=== PATIENT | male | born 1965 | race Caucasian/White ===

== ENCOUNTER 2020-01-01 21:01 | Inpatient (IN) ==
[2020-01-01 21:21] LABS: Basophils # 0.1 K/mcL (0.0-0.2); Basophils % 0.6 %; Eosinophils # 0.3 K/mcL (0.0-0.6); Eosinophils % 2.7 %; Hematocrit 45.4 % (37.5-50.1); Hemoglobin 14.9 g/dL (12.9-16.9); Immature Granulocytes % 0.5 % (0-4); Lymphocytes # 2.9 K/mcL (0.6-4.6); Lymphocytes % 30.2 %; Mean Corpuscular HGB Conc 32.8 g/dL (31.6-35.5); Mean Corpuscular Hemoglobin 28.9 pg (28.0-33.3); Mean Corpuscular Volume 88.2 fL (83.0-100.0); Mean Platelet Volume 10.2 fL (9.4-12.4); Monocytes # 0.9 K/mcL (0.0-1.3); Monocytes % 8.8 %; Neutrophils # 5.5 K/mcL (1.6-8.9); Platelet Count 337 K/mcL (140-400); Red Blood Count 5.15 M/mcL (4.19-5.50); Red Cell Distribution Width 12.5 % (11.5-14.5); Segmented Neutrophils % 57.2 %; White Blood Count 9.7 K/mcL (4.3-11.1)
[2020-01-01] MEDS: Nitroglycerin 0.4 MG TAB.SUBL SL SCH (21:25)
[2020-01-01 21:29] LABS: INR 0.9; Prothrombin Time 10.6 Seconds (9.4-12.1)
[2020-01-01] MEDS ORDERED: *HR* FentaNYL (PF) 100 MCG/2 ML VIAL IVP ONE (21:30)
[2020-01-01] MEDS ORDERED: Ondansetron 4 MG/2 ML VIAL IVP ONE (21:31)
[2020-01-01 21:32] LABS: Activated Partial Thrombo Time 30.6 Seconds (26.0-36.0)
[2020-01-01 21:41] LABS: Albumin 3.9 g/dL (3.5-5.7); Bilirubin,Direct 0.1 mg/dL (0.0-0.2); Bilirubin,Indirect 0.2 mg/dL (0.0-1.0); Bilirubin,Total 0.3 mg/dL (0.3-1.0); Globulin 3.8 g/dL (2.4-3.5); Total Protein 7.7 g/dL (6.4-8.9)
[2020-01-01 21:47] LABS: BUN/Creatinine Ratio 11 (6-26); Blood Urea Nitrogen 17 mg/dL (6-20); Calcium 9.3 mg/dL (8.6-10.3); Carbon Dioxide 22 mEq/L (23-29); Chloride 98 mEq/L (98-107); Glucose 262 mg/dL (70-105); Osmolality,Calculated 285 (280-300); Potassium 3.9 mEq/L (3.5-5.1); Sodium 132 mEq/L (136-145); Troponin I < 0.03 ng/mL (< 0.04); eGFR For African Americans 59 (> 60); eGFR For Non-African Americans 49 (> 60)
[2020-01-01] MEDS ORDERED: *HR* HYDROmorphone (PF) 1 MG/ML SYRINGE IVP ONE (22:18)
[2020-01-01] MEDS ORDERED: *HR* Labetalol 20 MG/4 ML SYRINGE IVP ONE (23:12)
[2020-01-02] MEDS: Nitroglycerin 0.4 MG TAB.SUBL SL SCH (00:33)
[2020-01-02] MEDS ORDERED: Naloxone 0.4 MG/ML INJ IVP PRN ×3 (01:19→18:17)
[2020-01-02] MEDS: Morphine Sulfate 2 MG/ML SYRINGE IVP PRN ×7 (01:25→22:20)
[2020-01-02] MEDS ORDERED: 0.9 % Sodium Chloride 1,000 ML IVC ONE (02:08)
[2020-01-02 03:04] LABS: Hematocrit 45.4 % (37.5-50.1); Hemoglobin 14.9 g/dL (12.9-16.9); Mean Corpuscular HGB Conc 32.8 g/dL (31.6-35.5); Mean Corpuscular Hemoglobin 28.9 pg (28.0-33.3); Mean Platelet Volume 10.3 fL (9.4-12.4); Platelet Count 291 K/mcL (140-400); Red Blood Count 5.16 M/mcL (4.19-5.50); Red Cell Distribution Width 12.5 % (11.5-14.5); White Blood Count 9.9 K/mcL (4.3-11.1)
[2020-01-02 03:25] LABS: BUN/Creatinine Ratio 13 (6-26); Blood Urea Nitrogen 16 mg/dL (6-20); Carbon Dioxide 23 mEq/L (23-29); Chloride 98 mEq/L (98-107); Glucose 330 mg/dL (70-105); Magnesium 1.7 mg/dL (1.6-2.6); Osmolality,Calculated 288 (280-300); Phosphorous 2.3 mg/dL (2.7-4.5); Potassium 4.2 mEq/L (3.5-5.1); Sodium 132 mEq/L (136-145); Troponin I < 0.03 ng/mL (< 0.04); eGFR For African Americans > 60 (> 60); eGFR For Non-African Americans 59 (> 60)
[2020-01-02] MEDS ORDERED: Ondansetron 4 MG/2 ML VIAL IVP PRN ×2 (05:29→18:17)
[2020-01-02] MEDS ORDERED: D5% in Water 1,000 ML IVC PRN ×2 (09:00→18:17)
[2020-01-02] MEDS ORDERED: 0.9 % Sodium Chloride 1,000 ML IVC SCH (09:00)
[2020-01-02] MEDS ORDERED: Dextrose Gel 15 GM/37.5 ML TUBE PO PRN ×4 (09:00→18:17)
[2020-01-02] MEDS ORDERED: *HR* Dextrose 50 % in Water (Vial) 50 ML VIAL IVP PRN ×2 (09:00→18:17)
[2020-01-02] MEDS ORDERED: amLODIPine 5 MG TABLET PO SCH (09:15)
[2020-01-02] MEDS ORDERED: Insulin DETEMIR 100 UNIT/ML X5UNITS SQ SCH (09:15)
[2020-01-02 11:05] LABS: Estimated Average Glucose 278 mg/dl
[2020-01-02] MEDS: Piperacillin/Tazobactam 3.375 GM in 0.9 % Sodium Chloride Mini Bag 100 ML IVPB SCH ×3 (11:06→18:51)
[2020-01-02] MEDS: carvediloL 25 MG TABLET PO SCH ×2 (11:07→18:37)
[2020-01-02] MEDS: Insulin LISPRO 300 UNITS/3 ML VIAL SQ SCH ×4 (11:12→23:04)
[2020-01-02 14:01] LABS: Adenovirus Not Detected (Not Detect); Bordetella Pertussis Not Detected (Not Detect); Chlamydophila pneumoniae Not Detected (Not Detect); Coronavirus 229E Not Detected (Not Detect); Coronavirus HKU1 Not Detected (Not Detect); Coronavirus NL63 Not Detected (Not Detect); Coronavirus OC43 Not Detected (Not Detect); Human Metapneumovirus Not Detected (Not Detect); Human Rhinovirus/Enterovirus Not Detected (Not Detect); Influenza A Subtype 2009 H1 Not Detected (Not Detect); Influenza B Not Detected (Not Detect); Mycoplasma pneumoniae Not Detected (Not Detect); Parainfluenza Virus 1 Not Detected (Not Detect); Parainfluenza Virus 2 Not Detected (Not Detect); Parainfluenza Virus 3 Not Detected (Not Detect); Parainfluenza Virus 4 Not Detected (Not Detect); Respiratory Syncytial Virus Not Detected (Not Detect); SARS-CoV-2 Not Detected (Not Detect)
[2020-01-02] MEDS ORDERED: *HR* Rocuronium Bromide 50 MG/5 ML VIAL ONE (15:40)
[2020-01-02] MEDS ORDERED: Lidocaine -MPF 2% 2 ML VIAL ONE (15:40)
[2020-01-02] MEDS ORDERED: Lidocaine HCL 4 ML Topical Solution (Laryng-O-Jet Kit Sterile Pak) TP ONE (15:40)
[2020-01-02] MEDS ORDERED: *HR* Midazolam HCl 2 MG/2 ML VIAL ONE (15:40)
[2020-01-02] MEDS ORDERED: *HR* FentaNYL (PF) 100 MCG/2 ML VIAL ONE ×2 (15:40→16:36)
[2020-01-02] MEDS ORDERED: *HR* Propofol 200 MG/20 ML VIAL IVP ONE (15:40)
[2020-01-02] MEDS ORDERED: *HR* Succinylcholine 200 MG/10 ML VIAL IVP ONE (15:40)
[2020-01-02] MEDS ORDERED: Isovue-300 50ML VIAL ONE (15:44)
[2020-01-02] MEDS ORDERED: *HR* Labetalol 20 MG/4 ML SYRINGE IVP PRN ×2 (16:02→18:17)
[2020-01-02] MEDS ORDERED: Albuterol 2.5 MG/3 ML NEBULIZER IH PRN (16:02)
[2020-01-02] MEDS ORDERED: *HR* FentaNYL (PF) 100 MCG/2 ML VIAL IVP PRN (16:02)
[2020-01-02] MEDS ORDERED: flumazeniL 0.5 MG/5 ML VIAL IVP PRN (16:02)
[2020-01-02] MEDS ORDERED: *HR* HYDROmorphone PF 0.5 MG/0.5 ML SYRINGE IVP PRN (16:02)
[2020-01-02] MEDS ORDERED: Ondansetron 4 MG/2 ML VIAL ONE (16:17)
[2020-01-02] MEDS ORDERED: *HR* PHENYLEPHRINE 1,000 MCG/10 ML SYRINGE IVP ONE (16:18)
[2020-01-02] MEDS ORDERED: Scopolamine Patch 1.5 MG PATCH.TD72 ONE (16:22)
[2020-01-02] MEDS ORDERED: Neostigmine Methylsulfate 3 MG/3 ML SYRINGE ONE (16:33)
[2020-01-03] MEDS: Piperacillin/Tazobactam 3.375 GM in 0.9 % Sodium Chloride Mini Bag 100 ML IVPB SCH ×3 (02:04→19:45)
[2020-01-03 04:11] LABS: Basophils % 0.2 %; Eosinophils # 0.1 K/mcL (0.0-0.6); Eosinophils % 0.8 %; Hematocrit 41.6 % (37.5-50.1); Immature Granulocytes % 0.3 % (0-4); Lymphocytes # 1.9 K/mcL (0.6-4.6); Lymphocytes % 20.7 %; Mean Corpuscular HGB Conc 31.7 g/dL (31.6-35.5); Mean Corpuscular Hemoglobin 28.4 pg (28.0-33.3); Mean Corpuscular Volume 89.7 fL (83.0-100.0); Mean Platelet Volume 10.2 fL (9.4-12.4); Monocytes # 0.8 K/mcL (0.0-1.3); Monocytes % 8.1 %; Neutrophils # 6.5 K/mcL (1.6-8.9); Platelet Count 235 K/mcL (140-400); Red Blood Count 4.64 M/mcL (4.19-5.50); Red Cell Distribution Width 12.9 % (11.5-14.5); Segmented Neutrophils % 69.9 %; White Blood Count 9.3 K/mcL (4.3-11.1)
[2020-01-03 04:14] LABS: Hemoglobin 13.2 g/dL (12.9-16.9)
[2020-01-03 04:20] LABS: Calcium 8.4 mg/dL (8.6-10.3); Magnesium 1.7 mg/dL (1.6-2.6); Phosphorous 3.2 mg/dL (2.7-4.5); Potassium 3.9 mEq/L (3.5-5.1)
[2020-01-03] MEDS: Insulin LISPRO 300 UNITS/3 ML VIAL SQ SCH ×4 (05:05→19:49)
[2020-01-03] MEDS: Morphine Sulfate 2 MG/ML SYRINGE IVP PRN ×3 (05:43→15:11)
[2020-01-03] MEDS ORDERED: 0.9 % Sodium Chloride 1,000 ML IVC SCH (09:00)
[2020-01-03] MEDS ORDERED: amLODIPine 5 MG TABLET PO SCH ×2 (09:00)
[2020-01-03] MEDS ORDERED: Insulin DETEMIR 100 UNIT/ML X5UNITS SQ SCH ×2 (09:00)
[2020-01-03] MEDS: Aspirin Enteric Coated 81 MG Tablet PO SCH (10:25)
[2020-01-03] MEDS: Isosorbide MONOnitrate (24 HR) 60 MG TAB.ER.24H PO SCH (10:25)
[2020-01-03] MEDS: Ferrous Sulfate Oral Soln 300 MG/5 ML UDC PO SCH (10:25)
[2020-01-03] MEDS: Psyllium 1 PACKET POWD.PACK PO SCH (10:26)
[2020-01-03] MEDS: carvediloL 25 MG TABLET PO SCH ×2 (10:30→17:24)
[2020-01-03] MEDS: 0.9 % Sodium Chloride 1,000 ML IVC SCH (12:00)
[2020-01-03] MEDS: *HR* Heparin 5,000 UNIT/ML VIAL SQ SCH (17:24)
[2020-01-03] MEDS: *HR* OxyCODONE/APAP 5/325 TABLET PO PRN (19:44)
[2020-01-04] MEDS: Piperacillin/Tazobactam 3.375 GM in 0.9 % Sodium Chloride Mini Bag 100 ML IVPB SCH ×3 (04:39→17:57)
[2020-01-04] MEDS: 0.9 % Sodium Chloride 1,000 ML IVC SCH (04:39)
[2020-01-04 05:20] LABS: Calcium 8.3 mg/dL (8.6-10.3); Magnesium 1.7 mg/dL (1.6-2.6); Phosphorous 2.9 mg/dL (2.7-4.5); Potassium 3.8 mEq/L (3.5-5.1)
[2020-01-04] MEDS: *HR* Heparin 5,000 UNIT/ML VIAL SQ SCH ×2 (05:21→16:45)
[2020-01-04] MEDS: amLODIPine 5 MG TABLET PO SCH (08:26)
[2020-01-04] MEDS: Aspirin Enteric Coated 81 MG Tablet PO SCH (08:26)
[2020-01-04] MEDS: Isosorbide MONOnitrate (24 HR) 60 MG TAB.ER.24H PO SCH (08:26)
[2020-01-04] MEDS: carvediloL 25 MG TABLET PO SCH ×2 (08:27→16:45)
[2020-01-04] MEDS: Ferrous Sulfate Oral Soln 300 MG/5 ML UDC PO SCH (08:28)
[2020-01-04] MEDS: Insulin DETEMIR 100 UNIT/ML X5UNITS SQ SCH (08:29)
[2020-01-04] MEDS: Insulin LISPRO 300 UNITS/3 ML VIAL SQ SCH ×4 (08:29→20:17)
[2020-01-04] MEDS: Psyllium 1 PACKET POWD.PACK PO SCH (08:33)
[2020-01-04 10:31] LABS: Sodium, Urine 97.3 mEq/L
[2020-01-04 10:38] LABS: Bilirubin,Urine Negative (Negative); Blood,Urine Trace (Negative); Clarity,Urine Clear (Clear); Color,Urine Light-Yellow (Yellow); Glucose,Urine (UA) 500 mg/dL (Normal); Ketones,Urine Negative (Negative); Leukocyte Esterase,Urine Negative (Negative); Mucus,Urine Few per lpf (None-Few); Nitrite,Urine Negative (Negative); PH,Urine 6.5 pH Units (5.0-8.0); Protein,Urine >=300 mg/dL (Neg-Trace); RBC,Urine 0-3 per hpf (0-3); Specific Gravity,Urine 1.018 (1.010-1.025); Urobilinogen,Urine Normal (Normal); WBC,Urine 0-3 per hpf (0-3)
[2020-01-04] MEDS: Sennosides/Docusate Sodium TABLET PO SCH ×2 (12:51→20:21)
[2020-01-04] MEDS ORDERED: Perflutren Lipid Microsphere 1.3 ML in 0.9 % Sodium Chloride 8.7 ML IVP PRN (13:56)
[2020-01-04] MEDS: *HR* OxyCODONE/APAP 5/325 TABLET PO PRN ×2 (14:33→22:35)
[2020-01-05] MEDS: Piperacillin/Tazobactam 3.375 GM in 0.9 % Sodium Chloride Mini Bag 100 ML IVPB SCH (03:21)
[2020-01-05 06:12] LABS: Calcium 8.6 mg/dL (8.6-10.3); Magnesium 1.7 mg/dL (1.6-2.6); Potassium 3.4 mEq/L (3.5-5.1)
[2020-01-05] MEDS: *HR* Heparin 5,000 UNIT/ML VIAL SQ SCH (06:20)
[2020-01-05] MEDS: Sennosides/Docusate Sodium TABLET PO SCH (07:53)
[2020-01-05] MEDS: Aspirin Enteric Coated 81 MG Tablet PO SCH (07:54)
[2020-01-05] MEDS: carvediloL 25 MG TABLET PO SCH (07:54)
[2020-01-05] MEDS: Isosorbide MONOnitrate (24 HR) 60 MG TAB.ER.24H PO SCH (07:55)
[2020-01-05] MEDS: Psyllium 1 PACKET POWD.PACK PO SCH (07:55)
[2020-01-05] MEDS: amLODIPine 5 MG TABLET PO SCH (07:55)
[2020-01-05] MEDS: Ferrous Sulfate Oral Soln 300 MG/5 ML UDC PO SCH (07:55)
[2020-01-05] MEDS: Insulin LISPRO 300 UNITS/3 ML VIAL SQ SCH (07:56)
[2020-01-05] MEDS: Insulin DETEMIR 100 UNIT/ML X5UNITS SQ SCH (07:56)
[2020-01-05 10:26] VITALS: BP 139/71
== END 2020-01-05 11:09 | disposition home or self-care (01) | DRG 418 ==
LOC: EMEROOARM 21:01 → 3BNU 21:01 → SUATTDRO 01-02 00:03 → 3BNU 01-02 00:26
PROVIDERS: ADMIT Family Medicine; ATTEND Internal Medicine

== ENCOUNTER 2020-08-19 11:20 | Inpatient (IN) ==
[2020-08-19 11:58] LABS: Basophils % 0.4 %; Eosinophils # 0.2 K/mcL (0.0-0.6); Eosinophils % 2.3 %; Hematocrit 39.7 % (37.5-50.1); Immature Granulocytes % 0.3 % (0-4); Lymphocytes # 2.2 K/mcL (0.6-4.6); Lymphocytes % 23.9 %; Mean Corpuscular HGB Conc 32.7 g/dL (31.6-35.5); Mean Corpuscular Hemoglobin 28.8 pg (28.0-33.3); Mean Corpuscular Volume 87.8 fL (83.0-100.0); Mean Platelet Volume 10.5 fL (9.4-12.4); Monocytes # 0.6 K/mcL (0.0-1.3); Monocytes % 6.4 %; Neutrophils # 6.2 K/mcL (1.6-8.9); Platelet Count 290 K/mcL (140-400); Red Blood Count 4.52 M/mcL (4.19-5.50); Red Cell Distribution Width 13.2 % (11.5-14.5); Segmented Neutrophils % 66.7 %; White Blood Count 9.2 K/mcL (4.3-11.1)
[2020-08-19] MEDS: Nitroglycerin 0.4 MG TAB.SUBL SL PRN ×2 (12:11→12:37)
[2020-08-19 12:20] LABS: BUN/Creatinine Ratio 10 (6-26); Blood Urea Nitrogen 15 mg/dL (6-20); Carbon Dioxide 22 mEq/L (23-29); Chloride 100 mEq/L (98-107); Glucose 376 mg/dL (70-105); Osmolality,Calculated 290 (280-300); Potassium 3.8 mEq/L (3.5-5.1); Sodium 132 mEq/L (136-145); Troponin I 0.86 ng/mL (< 0.04); eGFR For African Americans > 60 (> 60); eGFR For Non-African Americans 50 (> 60)
[2020-08-19] MEDS ORDERED: *HR* Heparin 5,000 UNIT/ML VIAL IVP PRN ×2 (12:27)
[2020-08-19] MEDS ORDERED: *HR* Heparin 5,000 UNIT/ML VIAL IVP ONE (12:27)
[2020-08-19] MEDS ORDERED: Heparin 25,000UNIT/250ML 1/2NS 25,000 UNIT/250 ML IV.SOLN IVC SCH (12:30)
[2020-08-19] MEDS ORDERED: Aspirin 81 MG TAB.CHEW PO STA (13:11)
[2020-08-19] MEDS ORDERED: Nitroglycerin 0.4 MG TAB.SUBL SL PRN (14:17)
[2020-08-19] MEDS ORDERED: Perflutren Lipid Microsphere 1.3 ML in 0.9 % Sodium Chloride 8.7 ML IVP PRN (14:21)
[2020-08-19] MEDS ORDERED: Naloxone 0.4 MG/ML INJ IVP PRN (14:22)
[2020-08-19] MEDS ORDERED: Acetaminophen 325 MG TABLET PO PRN (14:22)
[2020-08-19] MEDS ORDERED: Ondansetron 4 MG/2 ML VIAL IVP PRN (14:22)
[2020-08-19] MEDS: carvediloL 25 MG TABLET PO SCH (17:31)
[2020-08-19] MEDS: 0.9 % Sodium Chloride 1,000 ML IVC SCH (17:49)
[2020-08-19] MEDS ORDERED: D5% in Water 1,000 ML IVC PRN (18:21)
[2020-08-19] MEDS ORDERED: Dextrose Gel 15 GM/37.5 ML TUBE PO PRN ×2 (18:21)
[2020-08-19] MEDS ORDERED: *HR* Dextrose 50 % in Water (Vial) 50 ML VIAL IVP PRN (18:21)
[2020-08-19] MEDS: Insulin LISPRO 300 UNITS/3 ML VIAL SUBQ SCH ×2 (19:49→21:14)
[2020-08-19] MEDS ORDERED: Ipratropium/Albuterol Neb 3 ML IH PRN (20:23)
[2020-08-19] MEDS: *HR* Acetylcysteine 20% 600 MG/3 ML ORAL SYRINGE PO SCH (21:03)
[2020-08-20 00:58] LABS: Basophils % 0.4 %; Eosinophils # 0.3 K/mcL (0.0-0.6); Eosinophils % 3.4 %; Hematocrit 34.6 % (37.5-50.1); Hemoglobin 11.7 g/dL (12.9-16.9); Immature Granulocytes % 0.3 % (0-4); Lymphocytes # 2.6 K/mcL (0.6-4.6); Lymphocytes % 35.4 %; Mean Corpuscular HGB Conc 33.8 g/dL (31.6-35.5); Mean Corpuscular Hemoglobin 29.5 pg (28.0-33.3); Mean Corpuscular Volume 87.4 fL (83.0-100.0); Mean Platelet Volume 10.9 fL (9.4-12.4); Monocytes # 0.5 K/mcL (0.0-1.3); Monocytes % 6.6 %; Platelet Count 238 K/mcL (140-400); Red Blood Count 3.96 M/mcL (4.19-5.50); Red Cell Distribution Width 13.3 % (11.5-14.5); Segmented Neutrophils % 53.9 %; White Blood Count 7.5 K/mcL (4.3-11.1)
[2020-08-20 01:13] LABS: Estimated Average Glucose 249 mg/dl; Hemoglobin A1C 10.3 %
[2020-08-20 01:15] LABS: Calcium 8.6 mg/dL (8.6-10.3); Magnesium 1.7 mg/dL (1.6-2.6); Potassium 3.4 mEq/L (3.5-5.1)
[2020-08-20] MEDS: Aspirin Enteric Coated 81 MG Tablet PO SCH (08:07)
[2020-08-20] MEDS: *HR* Acetylcysteine 20% 600 MG/3 ML ORAL SYRINGE PO SCH (08:07)
[2020-08-20] MEDS: carvediloL 25 MG TABLET PO SCH ×2 (08:07→16:17)
[2020-08-20] MEDS: Insulin LISPRO 300 UNITS/3 ML VIAL SUBQ SCH ×4 (08:08→21:44)
[2020-08-20] MEDS ORDERED: Potassium Chloride Elixir 20 MEQ/15 ML UDC PO ONE (09:08)
[2020-08-20] MEDS: amLODIPine 5 MG TABLET PO SCH (09:51)
[2020-08-20] MEDS ORDERED: *HR* Heparin 10,000 UNIT/10 ML VIAL ONE (10:40)
[2020-08-20] MEDS ORDERED: ISOVUE-370 200 ML INFUS..BTL ONE (10:40)
[2020-08-20] MEDS ORDERED: Heparin 1,000 UNITS/500 mL 500 ML ONE (10:40)
[2020-08-20] MEDS ORDERED: 0.9 % Sodium Chloride 2,000 ML ONE (10:40)
[2020-08-20] MEDS ORDERED: Nitroglycerin 1,000 MCG/5 ML VIAL IV ONE (10:41)
[2020-08-20] MEDS ORDERED: *HR* Midazolam HCl 2 MG/2 ML VIAL ONE (10:50)
[2020-08-20] MEDS ORDERED: *HR* FentaNYL (PF) 100 MCG/2 ML VIAL ONE (10:51)
[2020-08-20] MEDS ORDERED: Isosorbide MONOnitrate (24 HR) 30 MG TAB.ER.24H PO SCH (12:15)
[2020-08-20] MEDS: Isosorbide MONOnitrate (24 HR) 30 MG TAB.ER.24H PO SCH (13:00)
[2020-08-20] MEDS: 0.9 % Sodium Chloride 1,000 ML IVC SCH (13:02)
[2020-08-21 01:19] LABS: Basophils % 0.4 %; Eosinophils # 0.2 K/mcL (0.0-0.6); Eosinophils % 3.1 %; Hematocrit 33.8 % (37.5-50.1); Immature Granulocytes % 0.4 % (0-4); Lymphocytes # 2.2 K/mcL (0.6-4.6); Lymphocytes % 32.3 %; Mean Corpuscular HGB Conc 32.5 g/dL (31.6-35.5); Mean Corpuscular Hemoglobin 28.9 pg (28.0-33.3); Mean Corpuscular Volume 88.9 fL (83.0-100.0); Mean Platelet Volume 10.5 fL (9.4-12.4); Monocytes # 0.5 K/mcL (0.0-1.3); Monocytes % 7.4 %; Neutrophils # 3.8 K/mcL (1.6-8.9); Platelet Count 233 K/mcL (140-400); Red Cell Distribution Width 13.4 % (11.5-14.5); Segmented Neutrophils % 56.4 %; White Blood Count 6.8 K/mcL (4.3-11.1)
[2020-08-21 01:36] LABS: BUN/Creatinine Ratio 12 (6-26); Blood Urea Nitrogen 15 mg/dL (6-20); Calcium 8.6 mg/dL (8.6-10.3); Carbon Dioxide 24 mEq/L (23-29); Chloride 105 mEq/L (98-107); Glucose 283 mg/dL (70-105); Magnesium 1.7 mg/dL (1.6-2.6); Osmolality,Calculated 293 (280-300); Potassium 3.9 mEq/L (3.5-5.1); Sodium 136 mEq/L (136-145); eGFR For African Americans > 60 (> 60); eGFR For Non-African Americans 58 (> 60)
[2020-08-21 07:26] VITALS: BP 160/87
[2020-08-21] MEDS: amLODIPine 5 MG TABLET PO SCH (07:35)
[2020-08-21] MEDS: Aspirin Enteric Coated 81 MG Tablet PO SCH (07:35)
[2020-08-21] MEDS: Isosorbide MONOnitrate (24 HR) 30 MG TAB.ER.24H PO SCH (07:35)
[2020-08-21] MEDS: Insulin LISPRO 300 UNITS/3 ML VIAL SUBQ SCH ×2 (07:35→12:00)
[2020-08-21] MEDS: carvediloL 25 MG TABLET PO SCH (07:35)
[2020-08-21] MEDS ORDERED: Multivit/Ca/Min/Fe/FA 1 TAB TABLET PO SCH (09:00)
[2020-08-21] MEDS: 0.9 % Sodium Chloride 1,000 ML IVC SCH (11:52)
== END 2020-08-21 15:35 | disposition home or self-care (01) | DRG 281 ==
LOC: EMEROOARM 11:20 → 2NENU 11:20 → SUATTDRO 14:12 → 2NENU 15:07
PROVIDERS: ADMIT Pharmacist; ATTEND Pharmacist

== ENCOUNTER 2021-07-30 21:13 | Inpatient (IN) ==
[2021-07-30 22:09] LABS: Basophils % 0.4 %; Eosinophils # 0.3 K/mcL (0.0-0.6); Eosinophils % 3.2 %; Hematocrit 39.7 % (37.5-50.1); Hemoglobin 12.9 g/dL (12.9-16.9); Immature Granulocytes % 0.7 % (0-4); Lymphocytes # 2.8 K/mcL (0.6-4.6); Lymphocytes % 29.3 %; Mean Corpuscular HGB Conc 32.5 g/dL (31.6-35.5); Mean Corpuscular Hemoglobin 29.7 pg (28.0-33.3); Mean Corpuscular Volume 91.3 fL (83.0-100.0); Mean Platelet Volume 10.6 fL (9.4-12.4); Monocytes # 0.8 K/mcL (0.0-1.3); Monocytes % 8.2 %; Neutrophils # 5.6 K/mcL (1.6-8.9); Platelet Count 349 K/mcL (140-400); Red Blood Count 4.35 M/mcL (4.19-5.50); Red Cell Distribution Width 13.6 % (11.5-14.5); Segmented Neutrophils % 58.2 %; White Blood Count 9.7 K/mcL (4.3-11.1)
[2021-07-30 22:16] LABS: Prothrombin Time 10.8 Seconds (9.4-12.1)
[2021-07-30 22:18] LABS: Activated Partial Thrombo Time 34.4 Seconds (26.0-36.0)
[2021-07-30 22:29] LABS: BUN/Creatinine Ratio 12 (6-26); Blood Urea Nitrogen 26 mg/dL (6-20); Calcium 9.3 mg/dL (8.6-10.3); Carbon Dioxide 22 mEq/L (23-29); Chloride 103 mEq/L (98-107); Glucose 271 mg/dL (70-105); Osmolality,Calculated 292 (280-300); Potassium 4.3 mEq/L (3.5-5.1); Sodium 134 mEq/L (136-145); eGFR For African Americans 39 (> 60); eGFR For Non-African Americans 32 (> 60)
[2021-07-30 22:30] LABS: Troponin I < 0.03 ng/mL (< 0.04)
[2021-07-30] MEDS ORDERED: 0.9 % Sodium Chloride 500 ML IVC ONE (22:34)
[2021-07-30] MEDS ORDERED: Ondansetron 4 MG/2 ML VIAL IVP ONE (22:34)
[2021-07-31] MEDS ORDERED: Metoclopramide 10 MG/2 ML VIAL IVP STA (00:04)
[2021-07-31] MEDS ORDERED: Aspirin 325 MG TABLET PO ONE (01:19)
[2021-07-31] MEDS ORDERED: *HR* Heparin 5,000 UNIT/ML VIAL IVP PRN ×2 (01:23)
[2021-07-31] MEDS ORDERED: *HR* Heparin 5,000 UNIT/ML VIAL IVP ONE (01:23)
[2021-07-31] MEDS ORDERED: Heparin 25,000UNIT/250ML 1/2NS 25,000 UNIT/250 ML IV.SOLN IVC SCH (01:30)
[2021-07-31] MEDS: Nitroglycerin 0.4 MG TAB.SUBL SL PRN ×3 (01:41→01:51)
[2021-07-31 01:57] LABS: Hematocrit 37.1 % (37.5-50.1); Hemoglobin 12.2 g/dL (12.9-16.9); Mean Corpuscular HGB Conc 32.9 g/dL (31.6-35.5); Mean Corpuscular Hemoglobin 29.5 pg (28.0-33.3); Mean Corpuscular Volume 89.8 fL (83.0-100.0); Mean Platelet Volume 10.8 fL (9.4-12.4); Platelet Count 324 K/mcL (140-400); Red Blood Count 4.13 M/mcL (4.19-5.50); Red Cell Distribution Width 13.5 % (11.5-14.5); White Blood Count 11.1 K/mcL (4.3-11.1)
[2021-07-31] MEDS ORDERED: Naloxone 0.4 MG/ML INJ IVP PRN (02:06)
[2021-07-31 02:08] LABS: Heparin anti-factor XA UFH < 0.04 IU/mL (0.30-0.70); Prothrombin Time 11.3 Seconds (9.4-12.1)
[2021-07-31] MEDS ORDERED: *HR* Dextrose 50 % in Water (Syg) 50 ML SYRINGE IVP PRN (02:10)
[2021-07-31] MEDS ORDERED: Dextrose 4 GM Chewable Tablets PO PRN ×2 (02:10)
[2021-07-31] MEDS ORDERED: D5% in Water 1,000 ML IVC PRN (02:10)
[2021-07-31] MEDS ORDERED: Perflutren Lipid Microsphere 1.3 ML in 0.9 % Sodium Chloride 8.7 ML IVP PRN (02:14)
[2021-07-31 03:13] LABS: Influenza A PCR Negative (Negative); Influenza B PCR Negative (Negative); Resp. Syncytial Virus PCR Negative (Negative)
[2021-07-31 03:14] LABS: SARS-CoV-2 by PCR (In House) Negative (Negative)
[2021-07-31 03:17] LABS: VBG Base Excess -2 mEq/L; VBG Chloride 106 mEq/L (98-107); VBG Glucose 262 mg/dl (65-95); VBG HCO3 23 mEq/L (21-27); VBG Oxygen Saturation 59 %; VBG PCO2 42 mmHg (41-51); VBG PH 7.35 pH Units (7.32-7.42); VBG PO2 32 mmHg (25-50); VBG Total CO2 25 mEq/L
[2021-07-31 03:33] LABS: Albumin 3.9 g/dL (3.5-5.7); Albumin/Globulin Ratio 1.1 (1.1-2.2); Bilirubin,Total 0.3 mg/dL (0.3-1.0); Calcium 9.4 mg/dL (8.6-10.3); Globulin 3.7 g/dL (2.4-3.5); Magnesium 1.7 mg/dL (1.6-2.6); Phosphorous 1.7 mg/dL (2.7-4.5); Potassium 4.7 mEq/L (3.5-5.1); Total Protein 7.6 g/dL (6.4-8.9)
[2021-07-31] MEDS: Melatonin 3 MG TABLET PO PRN (04:16)
[2021-07-31] MEDS: Morphine Sulfate 2 MG/ML SYRINGE IVP PRN ×3 (04:22→17:07)
[2021-07-31 04:26] LABS: D-Dimer 429 ng/mLFEU (0-500)
[2021-07-31] MEDS ORDERED: Furosemide 20 MG/2 ML VIAL IVP ONE (04:35)
[2021-07-31 04:46] LABS: Troponin I 0.63 ng/mL (< 0.04)
[2021-07-31] MEDS: Insulin LISPRO 300 UNITS/3 ML VIAL SUBQ SCH ×4 (07:17→21:18)
[2021-07-31] MEDS: Aspirin 81 MG TAB.CHEW PO SCH (07:37)
[2021-07-31] MEDS ORDERED: carvediloL 6.25 MG TABLET PO SCH (08:00)
[2021-07-31] MEDS ORDERED: 0.9 % Sodium Chloride 1,000 ML IVC SCH (11:00)
[2021-07-31] MEDS ORDERED: *HR* FentaNYL (PF) 100 MCG/2 ML VIAL ONE (11:20)
[2021-07-31] MEDS ORDERED: *HR* Midazolam HCl 2 MG/2 ML VIAL ONE (11:20)
[2021-07-31] MEDS ORDERED: *HR* Heparin 10,000 UNIT/10 ML VIAL ONE (11:21)
[2021-07-31] MEDS ORDERED: ISOVUE-370 200 ML INFUS..BTL ONE (11:21)
[2021-07-31] MEDS ORDERED: Heparin 1,000 UNITS/500 mL 500 ML ONE (11:21)
[2021-07-31] MEDS ORDERED: 0.9 % Sodium Chloride 2,000 ML ONE (11:21)
[2021-07-31] MEDS ORDERED: Nitroglycerin 1,000 MCG/5 ML VIAL IV ONE (11:21)
[2021-07-31] MEDS: amLODIPine 5 MG TABLET PO SCH ×2 (11:22→13:37)
[2021-07-31] MEDS: Isosorbide MONOnitrate (24 HR) 60 MG TAB.ER.24H PO SCH (11:25)
[2021-07-31] MEDS ORDERED: *HR* Atropine Sulfate 1 MG/10 ML SYRINGE ONE (12:01)
[2021-07-31] MEDS ORDERED: Tirofiban 12.5 MG/250ML 12.5 MG/250 ML BAG ONE (12:06)
[2021-07-31] MEDS ORDERED: Furosemide 40 MG/4 ML VIAL ONE (12:36)
[2021-07-31] MEDS ORDERED: 0.9 % Sodium Chloride 1,000 ML ONE (15:06)
[2021-07-31] MEDS ORDERED: *HR* LORazepam 1 MG TABLET PO ONE (17:21)
[2021-07-31] MEDS: Ranolazine 500 MG TAB.ER.12H PO SCH (19:41)
[2021-07-31] MEDS: Pregabalin 75 MG CAPSULE PO SCH (19:41)
[2021-07-31] MEDS ORDERED: *HR* Labetalol 20 MG/4 ML SYRINGE IVP ONE (20:26)
[2021-08-01 02:21] LABS: Hematocrit 34.5 % (37.5-50.1); Hemoglobin 11.6 g/dL (12.9-16.9)
[2021-08-01 02:37] LABS: BUN/Creatinine Ratio 12 (6-26); Blood Urea Nitrogen 29 mg/dL (6-20); eGFR For African Americans 35 (> 60); eGFR For Non-African Americans 29 (> 60)
[2021-08-01] MEDS: Insulin LISPRO 300 UNITS/3 ML VIAL SUBQ SCH ×4 (07:58→21:09)
[2021-08-01] MEDS: Pregabalin 75 MG CAPSULE PO SCH ×2 (07:59→21:09)
[2021-08-01] MEDS: Isosorbide MONOnitrate (24 HR) 60 MG TAB.ER.24H PO SCH (07:59)
[2021-08-01] MEDS: amLODIPine 5 MG TABLET PO SCH (07:59)
[2021-08-01] MEDS: Aspirin 81 MG TAB.CHEW PO SCH (07:59)
[2021-08-01] MEDS: Ranolazine 500 MG TAB.ER.12H PO SCH ×2 (07:59→21:09)
[2021-08-01] MEDS ORDERED: carvediloL 6.25 MG TABLET PO ONE (12:40)
[2021-08-01] MEDS: carvediloL 6.25 MG TABLET PO SCH (17:36)
[2021-08-01] MEDS: Insulin DETEMIR 100 UNIT/ML X5UNITS SUBQ SCH (21:09)
[2021-08-01] MEDS: Melatonin 3 MG TABLET PO PRN (21:28)
[2021-08-02 07:15] LABS: Basophils % 0.1 %; Eosinophils # 0.1 K/mcL (0.0-0.6); Eosinophils % 0.7 %; Hematocrit 30.6 % (37.5-50.1); Hemoglobin 10.1 g/dL (12.9-16.9); Immature Granulocytes % 0.4 % (0-4); Lymphocytes # 1.7 K/mcL (0.6-4.6); Mean Corpuscular Volume 90.8 fL (83.0-100.0); Mean Platelet Volume 11.1 fL (9.4-12.4); Monocytes # 0.7 K/mcL (0.0-1.3); Monocytes % 7.8 %; Neutrophils # 6.6 K/mcL (1.6-8.9); Platelet Count 206 K/mcL (140-400); Red Blood Count 3.37 M/mcL (4.19-5.50); White Blood Count 9.2 K/mcL (4.3-11.1)
[2021-08-02 07:30] LABS: Calcium 8.8 mg/dL (8.6-10.3); Magnesium 1.6 mg/dL (1.6-2.6); Potassium 3.6 mEq/L (3.5-5.1)
[2021-08-02 07:31] LABS: Albumin 3.3 g/dL (3.5-5.7)
[2021-08-02] MEDS: Insulin LISPRO 300 UNITS/3 ML VIAL SUBQ SCH ×4 (08:10→20:43)
[2021-08-02] MEDS: Aspirin 81 MG TAB.CHEW PO SCH (10:18)
[2021-08-02] MEDS: amLODIPine 5 MG TABLET PO SCH (10:18)
[2021-08-02] MEDS: Pregabalin 75 MG CAPSULE PO SCH ×2 (10:19→20:42)
[2021-08-02] MEDS: Isosorbide MONOnitrate (24 HR) 60 MG TAB.ER.24H PO SCH (10:19)
[2021-08-02] MEDS: Ranolazine 500 MG TAB.ER.12H PO SCH ×2 (10:19→20:42)
[2021-08-02] MEDS: carvediloL 6.25 MG TABLET PO SCH ×2 (10:19→17:10)
[2021-08-02] MEDS: Albumin 25% 25gram/100mL 25 GM/100 ML IV.SOLN IVPB SCH ×2 (10:20→17:17)
[2021-08-02 13:54] LABS: Bacteria,Urine Few per hpf (None-Few); Bilirubin,Urine Negative (Negative); Blood,Urine Small (Negative); Clarity,Urine Clear (Clear); Color,Urine Yellow (Yellow); Glucose,Urine (UA) 200 mg/dL (Normal); Ketones,Urine Negative (Negative); Leukocyte Esterase,Urine Small (Negative); Mucus,Urine Few per lpf (None-Few); Nitrite,Urine Negative (Negative); Protein,Urine >=600 mg/dL (Neg-Trace); Specific Gravity,Urine 1.021 (1.010-1.025); Squamous Epithelial Cell,Urine Few per hpf (None-Few); Urobilinogen,Urine Normal (Normal); WBC,Urine 15-30 per hpf (0-3)
[2021-08-02 13:59] LABS: Sodium, Urine 31.1 mEq/L
[2021-08-02 14:28] LABS: Calcium 8.9 mg/dL (8.6-10.3); Potassium 3.6 mEq/L (3.5-5.1)
[2021-08-02] MEDS ORDERED: 0.9 % Sodium Chloride 1,000 ML IVC SCH (14:45)
[2021-08-02] MEDS: *HR* Heparin 5,000 UNIT/ML VIAL SQ SCH (17:10)
[2021-08-02] MEDS: Insulin DETEMIR 100 UNIT/ML X5UNITS SUBQ SCH (20:43)
[2021-08-03] MEDS: Albumin 25% 25gram/100mL 25 GM/100 ML IV.SOLN IVPB SCH ×2 (00:48→08:28)
[2021-08-03 03:00] LABS: Calcium 9.1 mg/dL (8.6-10.3); Potassium 3.5 mEq/L (3.5-5.1)
[2021-08-03] MEDS: *HR* Heparin 5,000 UNIT/ML VIAL SQ SCH ×2 (06:10→17:46)
[2021-08-03] MEDS: Insulin LISPRO 300 UNITS/3 ML VIAL SUBQ SCH ×4 (08:26→21:04)
[2021-08-03] MEDS: Isosorbide MONOnitrate (24 HR) 60 MG TAB.ER.24H PO SCH (08:27)
[2021-08-03] MEDS: Pregabalin 75 MG CAPSULE PO SCH ×2 (08:27→21:02)
[2021-08-03] MEDS: Aspirin 81 MG TAB.CHEW PO SCH (08:27)
[2021-08-03] MEDS: carvediloL 6.25 MG TABLET PO SCH ×2 (08:27→17:46)
[2021-08-03] MEDS: Ranolazine 500 MG TAB.ER.12H PO SCH ×2 (08:27→21:03)
[2021-08-03] MEDS: amLODIPine 5 MG TABLET PO SCH (08:27)
[2021-08-03 08:54] LABS: Basophils % 0.2 %; Eosinophils # 0.1 K/mcL (0.0-0.6); Eosinophils % 0.7 %; Hematocrit 30.8 % (37.5-50.1); Hemoglobin 10.2 g/dL (12.9-16.9); Immature Granulocytes % 0.6 % (0-4); Lymphocytes # 1.1 K/mcL (0.6-4.6); Lymphocytes % 10.8 %; Mean Corpuscular HGB Conc 33.1 g/dL (31.6-35.5); Mean Corpuscular Hemoglobin 29.3 pg (28.0-33.3); Mean Corpuscular Volume 88.5 fL (83.0-100.0); Monocytes # 0.7 K/mcL (0.0-1.3); Monocytes % 6.7 %; Neutrophils # 8.1 K/mcL (1.6-8.9); Platelet Count 244 K/mcL (140-400); Red Blood Count 3.48 M/mcL (4.19-5.50); Red Cell Distribution Width 13.5 % (11.5-14.5)
[2021-08-03] MEDS ORDERED: levoFLOXacin 750 MG/150 ML 750 MG/150 ML BAG IVPB ONE (09:02)
[2021-08-03] MEDS: *HR* LORazepam 0.5 MG TABLET PO PRN ×2 (10:51→21:02)
[2021-08-03 12:00] LABS: Adenovirus Not Detected (Not Detect); Bordetella Pertussis Not Detected (Not Detect); Chlamydophila pneumoniae Not Detected (Not Detect); Coronavirus 229E Not Detected (Not Detect); Coronavirus HKU1 Not Detected (Not Detect); Coronavirus NL63 Not Detected (Not Detect); Coronavirus OC43 Not Detected (Not Detect); Human Metapneumovirus Not Detected (Not Detect); Human Rhinovirus/Enterovirus Not Detected (Not Detect); Influenza A Subtype 2009 H1 Not Detected (Not Detect); Influenza B Not Detected (Not Detect); Mycoplasma pneumoniae Not Detected (Not Detect); Parainfluenza Virus 1 Not Detected (Not Detect); Parainfluenza Virus 2 Not Detected (Not Detect); Parainfluenza Virus 3 Not Detected (Not Detect); Parainfluenza Virus 4 Not Detected (Not Detect); Respiratory Syncytial Virus Not Detected (Not Detect); SARS-CoV-2 Not Detected (Not Detect)
[2021-08-03] MEDS: Insulin DETEMIR 100 UNIT/ML X5UNITS SUBQ SCH (21:03)
[2021-08-04 05:11] LABS: Hematocrit 29.5 % (37.5-50.1); Hemoglobin 9.8 g/dL (12.9-16.9); Mean Corpuscular HGB Conc 33.2 g/dL (31.6-35.5); Mean Corpuscular Hemoglobin 29.1 pg (28.0-33.3); Mean Corpuscular Volume 87.5 fL (83.0-100.0); Mean Platelet Volume 10.8 fL (9.4-12.4); Platelet Count 270 K/mcL (140-400); Red Blood Count 3.37 M/mcL (4.19-5.50); Red Cell Distribution Width 13.3 % (11.5-14.5); White Blood Count 8.1 K/mcL (4.3-11.1)
[2021-08-04 05:30] LABS: Calcium 9.2 mg/dL (8.6-10.3); Potassium 3.5 mEq/L (3.5-5.1)
[2021-08-04] MEDS: *HR* Heparin 5,000 UNIT/ML VIAL SQ SCH (05:59)
[2021-08-04 07:19] VITALS: TEMP 99
[2021-08-04] MEDS: Isosorbide MONOnitrate (24 HR) 60 MG TAB.ER.24H PO SCH (07:26)
[2021-08-04] MEDS: Ranolazine 500 MG TAB.ER.12H PO SCH (07:27)
[2021-08-04] MEDS: Pregabalin 75 MG CAPSULE PO SCH (07:27)
[2021-08-04] MEDS: Aspirin 81 MG TAB.CHEW PO SCH (07:27)
[2021-08-04] MEDS: amLODIPine 5 MG TABLET PO SCH (07:27)
[2021-08-04] MEDS: carvediloL 6.25 MG TABLET PO SCH (07:27)
[2021-08-04] MEDS: Insulin LISPRO 300 UNITS/3 ML VIAL SUBQ SCH ×2 (07:28→11:24)
[2021-08-04 10:41] VITALS: BP 122/68; PULSE 79; O2SAT 93
[2021-08-05] MEDS ORDERED: levoFLOXacin 500 MG/100 ML 500 MG/100 ML BAG IVPB SCH (08:00)
[2021-08-05] MEDS ORDERED: levoFLOXacin 750 MG/150 ML 750 MG/150 ML BAG IVPB SCH (09:00)
== END 2021-08-04 13:13 | disposition home or self-care (01) | DRG 250 ==
LOC: 2ANU 21:13 → EMEROOARM 21:13 → 2ANU 07-31 02:48 → SUATTDRO 08-01 12:29
PROVIDERS: ADMIT Internal Medicine; ATTEND Student in an Organized Health Care Education/Training Program

== ENCOUNTER 2021-09-05 06:37 | Observation (INO) ==
[2021-09-05] MEDS ORDERED: 0.9 % Sodium Chloride 1,000 ML ONE (06:51)
[2021-09-05 06:53] VITALS: TEMP 99
[2021-09-05] MEDS ORDERED: Amiodarone Premix 150 MG/100 ML BAG IVPB ONE (06:56)
[2021-09-05] MEDS ORDERED: 0.9 % Sodium Chloride 1,000 ML IVC ONE (06:56)
[2021-09-05 07:01] LABS: Basophils # 0.1 K/mcL (0.0-0.2); Basophils % 0.6 %; Eosinophils # 0.2 K/mcL (0.0-0.6); Hematocrit 34.7 % (37.5-50.1); Immature Granulocytes % 0.6 % (0-4); Lymphocytes # 2.7 K/mcL (0.6-4.6); Lymphocytes % 28.5 %; Mean Corpuscular HGB Conc 31.7 g/dL (31.6-35.5); Mean Corpuscular Hemoglobin 28.8 pg (28.0-33.3); Mean Corpuscular Volume 90.8 fL (83.0-100.0); Mean Platelet Volume 10.9 fL (9.4-12.4); Monocytes # 0.8 K/mcL (0.0-1.3); Monocytes % 8.7 %; Neutrophils # 5.6 K/mcL (1.6-8.9); Platelet Count 267 K/mcL (140-400); Red Blood Count 3.82 M/mcL (4.19-5.50); Red Cell Distribution Width 14.6 % (11.5-14.5); Segmented Neutrophils % 59.6 %; White Blood Count 9.4 K/mcL (4.3-11.1)
[2021-09-05 07:24] LABS: Calcium 9.5 mg/dL (8.6-10.3); Potassium 4.5 mEq/L (3.5-5.1); Troponin I 0.17 ng/mL (< 0.04)
[2021-09-05 07:59] LABS: Adenovirus Not Detected (Not Detect); Bordetella Pertussis Not Detected (Not Detect); Chlamydophila pneumoniae Not Detected (Not Detect); Coronavirus 229E Not Detected (Not Detect); Coronavirus HKU1 Not Detected (Not Detect); Coronavirus NL63 Not Detected (Not Detect); Coronavirus OC43 Not Detected (Not Detect); Human Metapneumovirus Not Detected (Not Detect); Human Rhinovirus/Enterovirus Not Detected (Not Detect); Influenza A Subtype 2009 H1 Not Detected (Not Detect); Influenza B Not Detected (Not Detect); Mycoplasma pneumoniae Not Detected (Not Detect); Parainfluenza Virus 1 Not Detected (Not Detect); Parainfluenza Virus 2 Not Detected (Not Detect); Parainfluenza Virus 3 Not Detected (Not Detect); Parainfluenza Virus 4 Not Detected (Not Detect); Respiratory Syncytial Virus Not Detected (Not Detect); SARS-CoV-2 Not Detected (Not Detect)
[2021-09-05] MEDS ORDERED: Naloxone 0.4 MG/ML INJ IVP PRN (08:27)
[2021-09-05] MEDS ORDERED: Melatonin 3 MG TABLET PO PRN (08:27)
[2021-09-05] MEDS ORDERED: Perflutren Lipid Microsphere 1.3 ML in 0.9 % Sodium Chloride 8.7 ML IVP PRN ×2 (08:28→18:18)
[2021-09-05] MEDS ORDERED: Amiodarone Premix 360 MG/200 ML BAG IVC ONE ×2 (08:28→16:55)
[2021-09-05 08:55] LABS: Magnesium 1.6 mg/dL (1.6-2.6)
[2021-09-05] MEDS ORDERED: D5% in Water 1,000 ML IVC PRN (09:41)
[2021-09-05] MEDS ORDERED: *HR* Dextrose 50 % in Water (Syg) 50 ML SYRINGE IVP PRN (09:41)
[2021-09-05] MEDS ORDERED: Dextrose Gel 15 GM/37.5 ML TUBE PO PRN ×2 (09:41)
[2021-09-05] MEDS ORDERED: Aspirin Enteric Coated 81 MG Tablet PO SCH (09:45)
[2021-09-05] MEDS ORDERED: Insulin LISPRO 300 UNITS/3 ML VIAL SUBQ SCH (12:00)
[2021-09-05] MEDS ORDERED: Heparin 25,000UNIT/250ML 1/2NS 25,000 UNIT/250 ML IV.SOLN IVC SCH (14:00)
[2021-09-05] MEDS ORDERED: *HR* Heparin 5,000 UNIT/ML VIAL IVP ONE (14:00)
[2021-09-05] MEDS ORDERED: *HR* Heparin 5,000 UNIT/ML VIAL IVP PRN ×2 (14:00)
[2021-09-05] MEDS ORDERED: Amiodarone Premix 360 MG/200 ML BAG IVC SCH (14:21)
[2021-09-05 14:48] LABS: Bilirubin,Urine Negative (Negative); Blood,Urine Negative (Negative); Clarity,Urine Clear (Clear); Color,Urine Light-Yellow (Yellow); Glucose,Urine (UA) 30 mg/dL (Normal); Hyaline Casts,Urine Few per lpf (None Seen); Ketones,Urine Negative (Negative); Leukocyte Esterase,Urine Negative (Negative); Mucus,Urine Few per lpf (None-Few); Nitrite,Urine Negative (Negative); Protein,Urine >=300 mg/dL (Neg-Trace); RBC,Urine 0-3 per hpf (0-3); Specific Gravity,Urine 1.011 (1.010-1.025); Squamous Epithelial Cell,Urine Few per hpf (None-Few); Urobilinogen,Urine Normal (Normal); WBC,Urine 0-3 per hpf (0-3)
[2021-09-05 14:52] LABS: Hemoglobin 10.7 g/dL (12.9-16.9); Mean Corpuscular HGB Conc 32.4 g/dL (31.6-35.5); Mean Corpuscular Hemoglobin 28.9 pg (28.0-33.3); Mean Corpuscular Volume 89.2 fL (83.0-100.0); Mean Platelet Volume 10.7 fL (9.4-12.4); Platelet Count 262 K/mcL (140-400); Red Cell Distribution Width 14.6 % (11.5-14.5); White Blood Count 6.7 K/mcL (4.3-11.1)
[2021-09-05 15:03] LABS: Heparin anti-factor XA UFH < 0.04 IU/mL (0.30-0.70)
[2021-09-05 15:04] LABS: INR 1.1; Prothrombin Time 12.4 Seconds (9.4-12.1)
[2021-09-05] MEDS ORDERED: *HR* FentaNYL (PF) 100 MCG/2 ML VIAL ONE (15:13)
[2021-09-05] MEDS ORDERED: Iopamidol - 370 200 ML INFUS..BTL ONE (15:14)
[2021-09-05] MEDS ORDERED: Heparin 1,000 UNITS/500 mL 500 ML ONE ×3 (15:14→20:13)
[2021-09-05] MEDS ORDERED: 0.9 % Sodium Chloride 2,000 ML ONE (15:14)
[2021-09-05] MEDS ORDERED: Nitroglycerin 1,000 MCG/5 ML VIAL IV ONE (15:14)
[2021-09-05] MEDS ORDERED: *HR* Midazolam HCl 2 MG/2 ML VIAL ONE ×2 (15:14→16:37)
[2021-09-05] MEDS ORDERED: *HR* Heparin 10,000 UNIT/10 ML VIAL ONE ×2 (15:14→19:05)
[2021-09-05 15:35] VITALS: BP 147/79; PULSE 80; O2SAT 97
[2021-09-05] MEDS ORDERED: *HR* Metoprolol 5 MG/5 ML VIAL IVP ONE (16:38)
[2021-09-05] MEDS ORDERED: D5% in Water 250 ML ONE (17:29)
[2021-09-05 17:42] LABS: ABG Base Excess -24 mEq/L (-2 to 3); ABG HCO3 10 mEq/L (21-27); ABG Oxygen Saturation 65 % (95-98); ABG PCO2 62 mmHg (35-45); ABG PH 6.81 pH Units (7.32-7.45); ABG PO2 62 mmHg (85-104); ABG TCO2 12 mEq/L (20-26)
[2021-09-05] MEDS ORDERED: Furosemide 40 MG/4 ML VIAL ONE (17:46)
[2021-09-05] MEDS ORDERED: Midazolam HCl 50 MG/50 ML IV.SOLN IVC SCH (18:00)
[2021-09-05] MEDS ORDERED: Lidocaine 2% Syringe 100 MG/5 ML IV STA (18:24)
[2021-09-05 18:25] LABS: ABG Base Excess -12 mEq/L (-2 to 3); ABG HCO3 15 mEq/L (21-27); ABG Oxygen Saturation 97 % (95-98); ABG PCO2 35 mmHg (35-45); ABG PH 7.24 pH Units (7.32-7.45); ABG PO2 103 mmHg (85-104); ABG TCO2 16 mEq/L (20-26)
[2021-09-05] MEDS ORDERED: Lidocaine Drip 2 GM/250 ML IV.SOLN IVC SCH (18:30)
[2021-09-05] MEDS ORDERED: Furosemide 240 MG in 0.9 % Sodium Chloride 96 ML IVC SCH (18:30)
[2021-09-05] MEDS ORDERED: Norepinephrine 4 MG/254 ML in 0.9% Sodium Chloride IVC ONE (19:59)
[2021-09-05] MEDS ORDERED: *HR* Amiodarone 450 MG/9 ML VIAL IVC ONE (19:59)
[2021-09-05] MEDS ORDERED: *HR* Succinylcholine 200 MG/10 ML VIAL IVP ONE (19:59)
[2021-09-05] MEDS ORDERED: *HR* Magnesium Sulfate 2 GM/50 ML PIGGYBACK IVPB ONE (19:59)
[2021-09-05] MEDS ORDERED: *HR* Norepinephrine 4 MG/4 ML VIAL IVC ONE (19:59)
[2021-09-05] MEDS ORDERED: *HR* EPINEPHrine 1 MG/10 ML SYRINGE IVP ONE (19:59)
[2021-09-05] MEDS ORDERED: *HR* Atropine Sulfate 1 MG/10 ML SYRINGE IV ONE (19:59)
== END 2021-09-05 20:00 | disposition short-term general hospital (02) ==
LOC: EMEROOARM 06:37 → 2NNU 06:37 → SUATTDRO 15:02 → 2NNU 15:40
PROVIDERS: ADMIT Internal Medicine; ATTEND Family Medicine